=== PATIENT | male | born 1935 | race Caucasian/White ===

== ENCOUNTER 2018-02-20 08:56 | Day surgery (SDC) | payer MEDICARE ==
[2018-02-19 16:26] LABS: ALBUMIN 3.4 G/DL (3.4-5.0); ALBUMIN/GLOBULIN RATIO 0.9 (1.1-1.5); ALKALINE PHOSPHATASE 59 IU/L (46-116); BLOOD UREA NITROGEN 15 MG/DL (7-18); BUN/CREATININE RATIO 9.5 (5.4-32.0); CHLORIDE 94 MMOL/L (99-107); CREATININE 1.58 MG/DL (0.60-1.10); PRE OP ALT 15 U/L (30-65); PRE OP ANION GAP 7 (8-16); PRE OP AST 15 U/L (10-37); PRE OP BILIRUB, TOTAL 0.4 MG/DL (0.0-1.0); PRE OP GLUCOSE 96 MG/DL (70-104); PRE OP POTASSIUM 3.9 MMOL/L (3.4-5.1); TOTAL PROTEIN 7.2 G/DL (6.4-8.2); eGFR 42 ML/MIN
[2018-02-19 16:31] LABS: BASOPHILS % (AUTO) 0.7 % (0-1); LYMPHOCYTES # (AUTO) 1.6 X10'3 (1.1-4.8); LYMPHOCYTES % (AUTO) 43.9 % (21-51); MEAN CORPUSCULAR HEMOGLOBIN 28.1 PG (27.0-31.0); MEAN CORPUSCULAR HGB CONC 33.7 % (33.0-36.5); MEAN CORPUSCULAR VOLUME 83.3 FL (78-98); MONOCYTES # (AUTO) 0.3 X10'3 (0-0.9); MONOCYTES % (AUTO) 6.7 % (2-12); NEUTROPHILS # (AUTO) 1.8 X10'3 (1.8-7.7); NEUTROPHILS % (AUTO) 47.7 % (42-75); PRE OP HEMATOCRIT 36.6 % (42.0-52.0); PRE OP HEMOGLOBIN 12.3 g/dL (14.0-17.9); PRE OP PLATELET COUNT 140 X10'3 (140-440); RED BLOOD COUNT 4.39 X10'6 (4.70-6.10)
[2018-02-19 16:39] LABS: PRE OP PROTIME 10.4 SECONDS (9.0-12.0)
[2018-02-19 16:41] LABS: PRE OP SODIUM 127 MMOL/L (135-145)
[~2018-02-20] VITALS: Ht 188 cm; Wt 91.2 kg
[2018-02-20] VITALS (17 sets, daily range): BP systolic 104–144; BP diastolic 55–88
[~2018-02-20 08:56] MED LIST: AMLO10TA13 PO; FINA5TAB11 PO; OLME20TA23 PO; OXYC-511 PO; RANI150T44 PO; TAMS0.4C32 PO; famotidine 20mg tablet PO ONE; levoFLOXACIN-Levaquin 500mg/D5 100 ML IV ONE; ringers solution, lacted 1,000 ML IV SCH
[2018-02-20] MEDS ORDERED: ringers solution, lacted 1,000 ML IV SCH (09:29)
[2018-02-20] MEDS ORDERED: meperidine/PF 25mg/ml syringe IV PRN ×3 (09:30)
[2018-02-20] MEDS ORDERED: morphine 4 MG/ML inj SYRINge IV PRN ×2 (09:30)
[2018-02-20] MEDS ORDERED: proCHLORperazine 10 MG/2 ml inj IV PRN ×2 (09:30→12:45)
[2018-02-20] MEDS ORDERED: ondansetron/PF 4mg/2ml inj IV PRN ×2 (09:30→12:45)
[2018-02-20 10:00] LABS: ISTAT CREATININE 1.5 mg/dL (0.8-1.3); ISTAT HGB 13.3 g/dl (14.0-18.0); ISTAT IONIZED CALCIUM 1.26 mmol/L (1.03-1.32); ISTAT K 4.7 mmol/L (3.5-5.1); POC BUN/CREATININE RATIO 13.3 (5.4-32.0)
[2018-02-20] MEDS ORDERED: fentaNYL/PF 50MCG/1 ML 2ML syringe ONE (10:47)
[2018-02-20] MEDS ORDERED: midazolam 2 mg/2 ml injection ONE (10:48)
[2018-02-20] MEDS ORDERED: propofol inj 20 ML IV ONE (12:40)
[2018-02-20] MEDS ORDERED: potassium cl 20mEq in 1/2 NS 1,000 ML IV SCH (12:44)
[2018-02-20] MEDS ORDERED: oxyCODONE/APAP 10/325mg tablet PO PRN (12:45)
[2018-02-20] MEDS ORDERED: acetaminophen 325mg tablet PO PRN (12:45)
[2018-02-20] MEDS ORDERED: zolpidem 5mg tablet PO PRN (12:45)
[2018-02-20] MEDS ORDERED: oxybutynin 5mg tablet PO PRN (12:45)
[2018-02-20] MEDS ORDERED: mag hydrox/Alum hydrox/simeth 30ml oral suspension PO PRN (12:45)
[2018-02-20] MEDS ORDERED: levoFLOXACIN-Levaquin 500mg/D5 100 ML IV ONE (14:00)
[2018-02-20] MEDS ORDERED: ceFAZolin inj. 1,000 MG in dextrose 5%-water 50ml 50 ML IV SCH (16:00)
[2018-02-20] MEDS ORDERED: DOCU-28 PO (16:22)
[2018-02-20] MEDS: oxyCODONE/APAP 10/325mg tablet PO SCH (17:04)
[2018-02-20] MEDS: normal saline 1000ml 1,000 ML IV SCH (17:05)
[2018-02-20] MEDS: docusate sod 100mg capsule PO SCH (20:00)
[2018-02-20] MEDS: famotidine 20mg tablet PO SCH (20:34)
[2018-02-20] MEDS: tamsulosin 0.4mg capsule PO SCH (20:34)
[2018-02-20] MEDS ORDERED: amLODIPine 5mg tablet PO SCH (21:00)
[2018-02-21] VITALS: BP 141/72
[2018-02-21] MEDS: normal saline 1000ml 1,000 ML IV SCH ×2 (00:10→09:04)
[2018-02-21 04:00] VITALS: BP 142/72
[2018-02-21 05:41] LABS: BASOPHILS % (AUTO) 0.4 % (0-1); EOSINOPHILS # (AUTO) 0.1 X10'3 (0-0.9); EOSINOPHILS % (AUTO) 1.6 % (0-6); HEMATOCRIT 37.2 % (42.0-52.0); HEMOGLOBIN 12.5 g/dl (14.0-17.9); LYMPHOCYTES # (AUTO) 0.6 X10'3 (1.1-4.8); MEAN CORPUSCULAR HEMOGLOBIN 28.2 PG (27.0-31.0); MEAN CORPUSCULAR HGB CONC 33.7 % (33.0-36.5); MEAN CORPUSCULAR VOLUME 83.7 FL (78-98); MEAN PLATELET VOLUME 8.2 FL (7.4-10.4); MONOCYTES # (AUTO) 0.2 X10'3 (0-0.9); MONOCYTES % (AUTO) 6.2 % (2-12); NEUTROPHILS # (AUTO) 3.1 X10'3 (1.8-7.7); NEUTROPHILS % (AUTO) 77.8 % (42-75); PLATELET COUNT 109 X10'3 (140-440); RED BLOOD COUNT 4.45 X10'6 (4.70-6.10); RED CELL DISTRIBUTION WIDTH 14.1 % (11.5-14.5)
[2018-02-21] MEDS: oxyCODONE/APAP 10/325mg tablet PO SCH ×2 (06:02→12:18)
[2018-02-21 06:12] LABS: ALBUMIN 2.8 G/DL (3.4-5.0); ANION GAP 7 (8-16); BLOOD UREA NITROGEN 14 MG/DL (7-18); BUN/CREATININE RATIO 9.9 (5.4-32.0); CALCIUM 8.6 MG/DL (8.5-10.1); CHLORIDE 101 MMOL/L (99-107); CREATININE 1.42 MG/DL (0.60-1.10); GLUCOSE 97 MG/DL (70-104); POTASSIUM 4.7 MMOL/L (3.5-5.1); SODIUM 133 MMOL/L (135-145); TOTAL CARBON DIOXIDE 24.6 MMOL/L (24-32); eGFR 48 ML/MIN
[2018-02-21 07:30] VITALS: BP 126/67
[2018-02-21] MEDS ORDERED: pantoprazole 40mg Tablet.DR PO SCH (07:30)
[2018-02-21] MEDS ORDERED: finasteride 5mg tablet PO SCH (08:00)
[2018-02-21] MEDS ORDERED: amLODIPine 5mg tablet PO SCH (08:00)
[2018-02-21] MEDS: docusate sod 100mg capsule PO SCH (08:00)
[2018-02-21] MEDS ORDERED: losartan 50mg tablet PO SCH (08:00)
[2018-02-21] MEDS: famotidine 20mg tablet PO SCH (08:04)
[2018-02-21] MEDS: tamsulosin 0.4mg capsule PO SCH (08:05)
[2018-02-21 11:00] VITALS: BP 136/75
== END 2018-02-21 14:20 | disposition home or self-care (01) ==
LOC: PAS 08:56 → SUR 3N 12:44 → PAS 02-21 14:20
PROVIDERS: ATTEND Urology
DX: N40.1 Benign prostatic hyperplasia with lower urinary tract symptoms (principal); I48.91 Unspecified atrial fibrillation; I10 Essential (primary) hypertension; M19.90 Unspecified osteoarthritis, unspecified site; I25.810 Atherosclerosis of coronary artery bypass graft(s) without angina pectoris; G89.29 Other chronic pain; G43.909 Migraine, unspecified, not intractable, without status migrainosus; Z93.3 Colostomy status; Z90.89 Acquired absence of other organs; Z90.49 Acquired absence of other specified parts of digestive tract; Z95.1 Presence of aortocoronary bypass graft; Z88.2 Allergy status to sulfonamides; Z88.6 Allergy status to analgesic agent; Z88.1 Allergy status to other antibiotic agents; Z88.3 Allergy status to other anti-infective agents; Z88.0 Allergy status to penicillin; Z87.11 Personal history of peptic ulcer disease; Z86.74 Personal history of sudden cardiac arrest; Z87.440 Personal history of urinary (tract) infections; Z88.5 Allergy status to narcotic agent; Z91.041 Radiographic dye allergy status; Z91.018 Allergy to other foods; Z85.828 Personal history of other malignant neoplasm of skin; Z79.891 Long term (current) use of opiate analgesic; Z98.890 Other specified postprocedural states; Z88.8 Allergy status to other drugs, medicaments and biological substances; Z79.899 Other long term (current) drug therapy; Z80.1 Family history of malignant neoplasm of trachea, bronchus and lung
CPT/HCPCS: 36415; 52601; 80047; 80048; 85025; 85610; 85730; 86885; 86900; 86901; A4346; A4615; J1956; J2250; J2704; J3010; J7030; J7120; 80053; 88305; A4402